=== PATIENT | male | born 1960 | race African-American/Black ===

== ENCOUNTER 2024-02-18 14:49 | Emergency (ER) | payer OTHER | END 2024-02-18 16:20 | disposition home or self-care (01) | LOC: CSHERS 14:49 | DX: Z00.00 Encounter for general adult medical examination without abnormal findings (principal); E11.9 Type 2 diabetes mellitus without complications; I25.10 Atherosclerotic heart disease of native coronary artery without angina pectoris; F17.210 Nicotine dependence, cigarettes, uncomplicated; Z55.6 Problems related to health literacy | CPT/HCPCS: 71046 ==